=== PATIENT | female | born 1980 | race Caucasian/White ===

== ENCOUNTER 2019-05-27 19:18 | Emergency (ER) | payer OTHER, MEDICAID ==
[~2019-05-27] VITALS: Ht 154.9 cm; Wt 72.6 kg
[2019-05-27 20:40] VITALS: BP 150/90
[2019-05-27] MEDS ORDERED: cefTRIAXone 1,000 MG VIAL ONE ×2 (21:27→21:28)
[2019-05-27] MEDS ORDERED: LIDOCAINE MPF 1% 5 ML ONE (21:28)
[2019-05-27] MEDS: cefTRIAXone 1,000 MG in LIDOCAINE MPF 1% 2.1 ML IM ONE (21:37)
== END 2019-05-27 21:35 | disposition home or self-care (01) ==
LOC: MED 19:18
DX: L03.311 Cellulitis of abdominal wall (principal); Z90.710 Acquired absence of both cervix and uterus; Z98.890 Other specified postprocedural states
CPT/HCPCS: 96372; 99283; J0696; J2001